=== PATIENT | female | born 1985 ===

== ENCOUNTER 2021-09-05 02:36 | Outpatient (CLI) | payer SELFPAY ==
[2021-09-05 03:58] VITALS: BP 129/79
== END 2021-09-05 04:28 | disposition home or self-care (01) ==
LOC: TRG 02:36 → APU 02:38 → TRG 04:28
PROVIDERS: ATTEND Obstetrics & Gynecology
DX: O62.9 Abnormality of forces of labor, unspecified (principal); Z3A.38 38 weeks gestation of pregnancy
CPT/HCPCS: 59025

== ENCOUNTER 2021-09-05 12:48 | Inpatient (IN) | payer OTHER ==
[2021-09-05 15:04] LABS: Hematocrit 34.4 % (30.3-42.9); Hemoglobin 11.1 gm/dl (10.1-14.3); Mean Corpuscular HGB Conc 32 % (30-34); Mean Corpuscular Volume 79 fl (79-97); Platelet Count 214 K/mm3 (140-440); Red Blood Count 4.37 M/mm3 (3.65-5.03); Red Cell Distribution Width 19.6 % (13.2-15.2)
[2021-09-05 15:47] LABS: Alanine Aminotransferase 23 units/L (7-56); Albumin 3.2 g/dL (3.9-5); Blood Urea Nitrogen 8 mg/dL (7-17); Calcium 8.5 mg/dL (8.4-10.2); Hemolysis Index 215; Uric Acid 4.7 mg/dL (3.5-7.6)
[2021-09-05 15:49] LABS: BUN/Creatinine Ratio 20
[2021-09-05 15:58] LABS: Bilirubin,Urine NEG (Negative); Blood,Urine SM (Negative); Color,Urine Straw (Yellow); Protein,Urine <15 mg/dL mg/dL (Negative); RBC,Urine < 1.0 /HPF (0.0-6.0); Urobilinogen,Urine < 2.0 mg/dL (<2.0)
[2021-09-05] MEDS ORDERED: ePHEDrine SULFATE 50 MG/1 ML INJ IV PRN (17:00)
[2021-09-05] MEDS ORDERED: OXYTOCIN 10 UNIT/1 ML INJ IM PRN (17:00)
[2021-09-05] MEDS ORDERED: ACETAMINOPHEN 325 MG TAB PO PRN (17:00)
[2021-09-05] MEDS ORDERED: BUTORPHANOL 2 MG/1 ML INJ IV PRN (17:00)
[2021-09-05] MEDS ORDERED: fentaNYL 100 MCG/2 ML INJ IV PRN (17:00)
[2021-09-05] MEDS ORDERED: miSOPROStol 200 MCG TAB PR PRN (17:00)
[2021-09-05] MEDS ORDERED: CARBOPROST TROMETHAMINE 250 MCG/1 ML INJ IM PRN (17:00)
[2021-09-05] MEDS ORDERED: MINERAL OIL 30 ML ORAL LIQD PO PRN (17:00)
[2021-09-05] MEDS ORDERED: LACTATED RINGERS 1,000 ML IV SCH (17:00)
[2021-09-05] MEDS ORDERED: TERBUTALINE 1 MG/1 ML INJ SUB-Q PRN (17:00)
[2021-09-05] MEDS ORDERED: LOPERAMIDE 2 MG CAP PO PRN (17:00)
[2021-09-05] MEDS ORDERED: OXYTOCIN DRIP 30 UNITS/500 ML BAG IV SCH (17:00)
[2021-09-05] MEDS ORDERED: LIDOCAINE (2%) 20 MG/1 ML VIAL 20 ML MDV INFILTRATI ONE (17:00)
--- NOTE | 2021-09-05 17:17 | History and Physical Report ---
History of Present Illness Date of examination: 09/05/21 Date of admission: 09/05/2021 Chief complaint: Contractions History of present illness: 36 year old female presents to L&D with complaint of contractions. Patient denies leaking of fluid or vaginal bleeding. Patient reports active movement. Patient received care at [facility] and records are available. LMP 12/12/20. EDC 09/18/21. Blood type O+, antibody screen negative, rubella nonimmune, pap smear negative, gonorrhea/chlamydia negative, AFP negative, NIPS normal, 1 hour sugar test 121, GBS negative, HIV negative, RPR nonreactive, hepatitis B surface antigen negative. Past History Past Medical History: other (obesity) Past Surgical History: no surgical history [employer] History: denies: chlamydia, gonorrhea, hepatitis B, hepatitis C, herpes, HIV, syphilis, trichomonas Family/Genetic History: none Social history: lives with family, full code. denies: smoking, alcohol abuse, prescription drug abuse, IV drug use - Obstetrical History Expected Date of Delivery: 09/18/21 Actual Gestation: 38 Week(s) 1 Day(s) : 3 Para: 2 Hx # Term Pregnancies: 2 Number of Pregnancies: 0 Spontaneous Abortions: 0 Induced : 0 Number of Living Children: 2 Medications and Allergies Allergies Allergy/AdvReac Type Severity Reaction Status Date / Time No Known Allergies Allergy Unverified 09/05/21 03:11 Active Meds: Active Medications Acetaminophen (Acetaminophen 325 Mg Tab) 650 mg PO Q4H PRN PRN Reason: Pain, Mild (1-3) Butorphanol Tartrate (Butorphanol 2 Mg/1 Ml Inj) 1 mg IV Q2H PRN PRN Reason: Pain, Moderate(4-6) LABOR PAIN Carboprost Tromethamine (Carboprost Tromethamine 250 Mcg/1 Ml Inj) 250 mcg IM ONCE PRN PRN Reason: Uterine Bleeding Ephedrine Sulfate (Ephedrine Sulfate 50 Mg/1 Ml Inj) 10 mg IV Q2M PRN PRN Reason: Hypotension Fentanyl (Fentanyl 100 Mcg/2 Ml Inj) 100 mcg IV Q2H PRN PRN Reason: Pain,Severe (7-10) LABOR PAIN Oxytocin/Sodium Chloride (Pitocin/Ns 30 Unit/500ml) 30 units in 500 mls @ 2 mls/hr IV TITR BELLE; Protocol Lactated Ringer's (Lactated Ringers) 1,000 mls @ 125 mls/hr IV DIRECT BELLE Oxytocin/Sodium Chloride (Pitocin/Ns 30 Unit/500ml) 30 units in 500 mls @ 40 mls/hr IV TITR BELLE; Protocol Labetalol HCl (Labetalol 100 Mg Tab) 100 mg PO BID BELLE Lidocaine (Lidocaine (2%) 20 Mg/1 Ml Vial 20 Ml Mdv) 20 ml INFILTRATI ONCE ONE Stop: 09/05/21 17:01 Loperamide HCl (Loperamide 2 Mg Cap) 2 mg PO ONCE PRN PRN Reason: give with Hemabate Mineral Oil (Mineral Oil 30 Ml Oral Liqd) 30 ml PO QHS PRN PRN Reason: Constipation Misoprostol (Misoprostol 200 Mcg Tab) 800 mcg ND ONCE PRN PRN Reason: Uterine Bleeding Oxytocin (Oxytocin 10 Unit/1 Ml Inj) 10 unit IM ONCE PRN PRN Reason: Uterine Bleeding Terbutaline Sulfate (Terbutaline 1 Mg/1 Ml Inj) 0.25 mg SUB-Q ONCE PRN PRN Reason: Hyperstimulation/Hypertonicity Review of Systems All systems: negative (contractions, mild headache) - Vital Signs Vital signs: Vital Signs Pulse Ox 99 09/05/21 13:20 Temp Pulse Resp BP Pulse Ox 98.2 F 72 18 140/88 99 09/05/21 13:25 09/05/21 16:55 09/05/21 13:25 09/05/21 16:55 09/05/21 13:25 - Physical Exam Abdomen: Positive: normal appearance, soft. Negative: distention, tenderness, guarding, rigidity Genitourinary (Female): Positive: normal external genitalia, normal perenium. Negative: perineal/vulvar lesions Vagina: Positive: normal moisture Uterus: Positive: enlarged. Negative: tender Anus/Rectum: Positive: normal perianal skin Extremities: Negative: tenderness, edema - Obstetrical FHR: category 1 Uterine Contraction Monitor Mode: External Cervical Dilatation: 4 Cervical Effacement Percentage: 50 station: Ballottable Uterine Contraction Pattern: Irregular Uterine Contraction Intensity: Mild Results Result Diagrams: 09/05/21 14:45 09/05/21 14:45 Abnormal lab results 09/05/21 09/05/21 Range/Units 14:45 14:45 MCH 25 L (28-32) pg RDW 19.6 H (13.2-15.2) % Potassium 5.2 H (3.6-5.0) mmol/L Carbon Dioxide 17 L (22-30) mmol/L Creatinine 0.4 L (0.6-1.2) mg/dL AST 52 H (5-40) units/L Alkaline Phosphatase 399 H (35-129) units/L Lactate Dehydrogenase 437 H (91-180) units/L Total Protein 6.2 L (6.3-8.2) g/dL Albumin 3.2 L (3.9-5) g/dL All other labs normal. Assessment and Plan A: at 38 weeks, 1 day gestation. Labor. GBS negative. Elevated blood pressure. P: Admit. EFM. Preeclamptic labs. Consulted with Dr. Fay re: patient and elevated blood pressures and labs. Dr. Fay orders to admit patient and augment labor.
[2021-09-05] MEDS: OXYTOCIN DRIP 30 UNITS/500 ML BAG IV SCH (18:41)
--- NOTE | 2021-09-05 23:12 | Event Note ---
Date: 09/05/21 Pt evaluated after nurse came and notified me at the desk that pt has some vag bleeding. Pt allowed to void in bedpan and AROM done with pelvic /-2 small amount of blood tinged fluid and 2 small clots passed in the bedpan. FHR not tracing continuously due to maternal habitus and pitocin still at 4mu/min. IUPC placed and FSE placed. FHR category I previously and if same remains, plan to augment by titrating pitocin upwards. Pt declines epidural. Will give IV pain med nubain now and zofran. Expect .
[2021-09-05] MEDS ORDERED: NalbUPHINE 10 MG/1 ML INJ IV PRN (23:22)
[2021-09-05] MEDS ORDERED: ONDANSETRON 4 MG/2 ML INJ IV PRN (23:23)
[2021-09-06] MEDS ORDERED: METHYLERGONOVINE MALEATE 0.2 MG/ML VIAL IM ONE (00:04)
--- NOTE | 2021-09-06 00:47 | Procedure Note ---
OB Delivery Note - Delivery Date of Delivery: 09/06/21 Surgeon: SUPA BISHOP Estimated blood loss: other (700cc) - Vaginal Delivery presentation: vertex Delivery position: OA Intrapartum events: other(please specify) (vaginal bleeding with clots during labor) Delivery augmentation: pitocin Delivery monitor: external FHT, external uterine, internal FHT, internal uterine Route of delivery: Delivery placenta: expressed Delivery cord: 3 umbilical vessels Episiotomy: none Delivery laceration: none Anesthesia: none Delivery comments: After pt received pain med, early decels noted and pt complete. Pt pushed well and SAVD of viable female infant then placenta delivered after 22min complete with 3vessel cord. Pt had uterine atony and same treated with pitocin and cytotec 800mcg per rectum. Pt sustained no vaginal laceration. Unable to view the cervix due to poor lighting and short instruments with long vagina; Cervix palpated and clots removed from lower uterine segment. Baby and patient stable. - A at 1 minute: 9 at 5 minutes: 9 Infant Gender: Female (wt)
[2021-09-06] MEDS: OXYTOCIN DRIP 30 UNITS/500 ML BAG IV SCH (01:34)
[2021-09-06] MEDS ORDERED: oxyCODONE /ACETAMINOPHEN 5-325MG TAB PO PRN (04:17)
[2021-09-06] MEDS ORDERED: LANOLIN/ZINC/DIMETHICONE (LANSINOH) 7 GM TP PRN (04:17)
[2021-09-06] MEDS ORDERED: MAGNESIUM HYDROXIDE (MOM) ORAL LIQD UDC PO PRN (04:17)
[2021-09-06] MEDS ORDERED: PROMETHAZINE 25 MG RECT SUPP PR PRN (04:17)
[2021-09-06] MEDS ORDERED: WITCH HAZEL/ GLYCERIN PAD TP PRN (04:17)
[2021-09-06] MEDS ORDERED: diphenhydrAMINE 25 MG CAP PO PRN (04:17)
[2021-09-06] MEDS ORDERED: PROMETHAZINE 25 MG TAB PO PRN (04:17)
[2021-09-06] MEDS ORDERED: ONDANSETRON 4 MG/2 ML INJ IV PRN (04:17)
[2021-09-06] MEDS: IBUPROFEN 600 MG TAB PO SCH ×4 (06:12→23:54)
[2021-09-06] MEDS ORDERED: SENNOSIDES/DOCUSATE SODIUM 8.6/50 MG TAB PO SCH (10:00)
[2021-09-06] MEDS: PRENATAL VIT27-FE FUMARATE-FOLIC ACID VIT TAB PO SCH (10:26)
[2021-09-06] MEDS: DOCUSATE SODIUM 100 MG CAP PO SCH ×2 (10:26→21:47)
[2021-09-06] MEDS: FERROUS SULFATE 325 MG TAB PO SCH ×2 (10:26→21:47)
[2021-09-06 13:08] LABS: Hematocrit 32.6 % (30.3-42.9); Hemoglobin 10.1 gm/dl (10.1-14.3); Mean Corpuscular HGB Conc 31 % (30-34); Mean Corpuscular Volume 80 fl (79-97); Platelet Count 216 K/mm3 (140-440); Red Blood Count 4.08 M/mm3 (3.65-5.03); Red Cell Distribution Width 18.9 % (13.2-15.2)
[2021-09-07] MEDS: IBUPROFEN 600 MG TAB PO SCH (05:45)
[2021-09-07] MEDS: DOCUSATE SODIUM 100 MG CAP PO SCH (10:20)
[2021-09-07] MEDS: PRENATAL VIT27-FE FUMARATE-FOLIC ACID VIT TAB PO SCH (10:20)
[2021-09-07] MEDS: FERROUS SULFATE 325 MG TAB PO SCH (10:20)
--- NOTE | 2021-09-07 10:42 | Discharge Summary ---
Providers - Providers Date of Admission: 09/05/21 17:25 Date of discharge: 09/07/21 Attending physician: SHARON BISHOP Primary care physician: SHARON BISHOP Hospitalization Reason for admission: active labor, IUP at term Delivery: Episiotomy: none Laceration: none Other procedures: none complications: other (Pt dev htn and was started on Labetalol with good b/p control.) Discharge diagnosis: IUP at term delivered baby: female Hospital course: Pt was admitted in active labor and had a . She dev htn and was started on Labetalol 100mg bid with good relief. See H&P, delivery summary, and pp notes. Condition at discharge: Stable Disposition: 01 HOME / SELF CARE / HOMELESS Plan - Discharge Medications Prescriptions: labetaloL [Labetalol 100mg TAB] 100 mg PO BID #90 tablet Ibuprofen [Motrin 600 MG tab] 600 mg PO Q6HR PRN #30 tablet PRN Reason: Menstrual Cramps - Provider Discharge Summary Activity: routine, no sex for 6 weeks, no heavy lifting 4 weeks, no strenuous exercise Diet: other (low Na) Instructions: routine Additional instructions: [] Smoking cessation referral if applicable(refer to patient education folder for contact #) [] Refer to [facility] Booklet Call your doctor immediately for: * Fever > 100.5 * Heavy vaginal bleeding ( >1 pad per hour) * Severe persistent headache * Shortness of breath * Reddened, hot, painful area to leg or breast * Drainage or odor from incision. * Keep incision clean and dry at all times and follow doctor's instructions r egarding bathing/showering - Follow up plan Follow up: SHARON BISHOP MD [Primary Care Provider] - 6 Weeks
[2021-09-07 12:24] VITALS: BP 123/86
== END 2021-09-07 13:10 | disposition home or self-care (01) | DRG 807 ==
LOC: TRG 12:48 → APU 12:50 → TRG 17:00 → LD 17:25 → OBSVTOIN 17:25 → OB 09-06 04:11
PROVIDERS: ADMIT Obstetrics & Gynecology; ATTEND Obstetrics & Gynecology
PROC: 10E0XZZ Delivery of Products of Conception, External Approach (ICD-10-PCS; principal; 2021-09-06)
PROC: 10H07YZ Insertion of Other Device into Products of Conception, Via Natural or Artificial Opening (ICD-10-PCS; 2021-09-06)
PROC: 3E033VJ Introduction of Other Hormone into Peripheral Vein, Percutaneous Approach (ICD-10-PCS; 2021-09-06)
DX: O67.9 Intrapartum hemorrhage, unspecified (principal); Z37.0 Single live birth; Z3A.38 38 weeks gestation of pregnancy; Z20.822 Contact with and (suspected) exposure to COVID-19
CPT/HCPCS: 36415; 59025; 80053; 81001; 83615; 84550; 85027; 86592; 86850; 86900; 86901; 99211; G0378; G0463; J2590; J3010; J7120; U0003